=== PATIENT | female | born 1955 | race Caucasian/White ===

== ENCOUNTER → 2020-10-08 11:54 | Outpatient (BNVA) | payer MEDICARE, BC, SELFPAY | PROVIDERS: Family Provider Nurse Practitioner Family; Visit Provider Nurse Practitioner Family | DX: N39.0 Urinary tract infection, site not specified (principal) | CPT/HCPCS: 81000; 87077; 87086; 87184 ==

== ENCOUNTER → 2020-10-13 17:17 | Outpatient (BNVA) | payer MEDICARE, BC, SELFPAY | PROVIDERS: Family Provider Nurse Practitioner Family; Visit Provider Family Medicine | DX: N39.0 Urinary tract infection, site not specified (principal) | CPT/HCPCS: 81003 ==

== ENCOUNTER → 2023-05-25 11:47 | Outpatient (BNVA) | payer MEDICARE, BC, SELFPAY | PROVIDERS: Family Provider Nurse Practitioner Family; PCP Nurse Practitioner Family; Visit Provider Nurse Practitioner Family | DX: L57.0 Actinic keratosis (principal); L82.1 Other seborrheic keratosis; L81.4 Other melanin hyperpigmentation; D22.5 Melanocytic nevi of trunk; L82.0 Inflamed seborrheic keratosis; L85.3 Xerosis cutis; Z80.8 Family history of malignant neoplasm of other organs or systems; Z85.828 Personal history of other malignant neoplasm of skin | CPT/HCPCS: 17000; 17003; 17110; 99213 ==

== ENCOUNTER → 2024-05-25 08:25 | Outpatient (BNVA) | payer MEDICARE, BC, SELFPAY | PROVIDERS: Family Provider Nurse Practitioner Family; PCP Nurse Practitioner Family; Visit Provider Nurse Practitioner Family | DX: L57.8 Other skin changes due to chronic exposure to nonionizing radiation (principal); L82.0 Inflamed seborrheic keratosis; L82.1 Other seborrheic keratosis; L81.4 Other melanin hyperpigmentation; D22.5 Melanocytic nevi of trunk; L85.3 Xerosis cutis; L57.0 Actinic keratosis; Z85.828 Personal history of other malignant neoplasm of skin | CPT/HCPCS: 17000; 17110; 99213 ==

== ENCOUNTER 2025-01-14 21:22 | Emergency (ER) | payer BC, MEDICARE, SELFPAY ==
--- NOTE | 2025-01-14 21:27 | ECG_ITS ---
[facility] Date: 2025-01-14 Pat Name: Kacey Garcia Department: Room: Gender: Female Vp Of Product: : 1955 Requested By: Dominick Horn Order Number: [id number] Mahad MD: Harsha Donnelly M.D. Measurements Intervals [place] Rate: 85 P: 50 GA: 139 QRS: 12 QRSD: 90 T: 14 QT: 345 QTc: 412 Interpretive Statements SINUS RHYTHM WITH OCCASIONAL SUPRAVENTRICULAR PREMATURE COMPLEXES LOW QRS VOLTAGE IN PRECORDIAL LEADS [QRS DEFLECTION < 1.0 mV IN CHEST LEADS] MINIMAL VOLTAGE CRITERIA FOR LVH, CONSIDER NORMAL VARIANT [MEETS CRITERIA IN ONE OF: R(aVL), S(V1), R(V5), R(V5/V6)+S(V1)] NONSPECIFIC T-WAVE ABNORMALITY No previous ECG available for comparison Electronically Signed On 01-14-2025 21:29:22 CDT by Harsha Donnelly M.D. [id number] [id number]
[2025-01-14 21:28] VITALS: BP 196/83; PULSE 84; RESP 16; TEMP 37.5; O2SAT 98
--- NOTE | 2025-01-14 21:51 | XRR_ITS ---
PROCEDURE INFORMATION: Exam: XR Chest Exam date and time: 01/14/2025 9:54 PM Age: 69 years old Clinical indication: Pain; Chest pressure TECHNIQUE: Imaging protocol: Radiologic exam of the chest. Views: 1 view. COMPARISON: No relevant prior studies available. FINDINGS: Lungs: Unremarkable. No consolidation. Pleural spaces: Unremarkable. No pleural effusion. No pneumothorax. Heart/Mediastinum: Unremarkable. No cardiomegaly. Bones/joints: Unremarkable. XR/XR chest 1V portable [id number] IMPRESSION: No acute cardiopulmonary process.
--- NOTE | 2025-01-14 21:53 | W.ED.CHESTPA ---
HPI - Chest Pain General: Chief Complaint: Abdominal Pain Stated Complaint: chest pain Time Seen by Provider: 01/14/25 21:41 History of Present Illness: Patient is a well-appearing 69-year-old female from home seen for chest pressure. She states that she has a long history of heartburn and thought that initially her symptoms were consistent with heartburn as roughly 5 hours after eating sweet potatoes she started to have burning in her chest however this sensation transformed into pressure associated with nausea, lightheadedness, and general feeling of angst. She has never felt this constellation of symptoms before. She tried taking her famotidine and Maalox which did not help symptoms at all. En route to the hospital she became somewhat nauseated. She has a strong family history of cardiac disease but no personal history of the same. She has never been diagnosed with hypertension, does not smoke, does not drink alcohol, and is not aware of her current triglycerides. She has never felt this constellation of symptoms before. Risk Factors: Coronary artery disease risk factors: hypertension (Never formally diagnosed with hypertension and does not take medicine for it.) Related Data Home Medications ?Medication ?Instructions ?Recorded ?Confirmed cetirizine 10 mg tablet (Zyrtec) 10 mg PO DAILY PRN 01/08/21 05/26/21 Allergies Allergy/AdvReac Type Severity Reaction Status Date / Time Penicillins Allergy HIVES Verified 01/14/25 21:31 [facility] ED PFSH: Medical History Basal cell carcinoma Surgical History Status post hysterectomy Status post tonsillectomy Family History Other CAD (coronary artery disease) Cancer Diabetes Social History Smoking and tobacco/nicotine status: never used tobacco/nicotine Alcohol intake: never Substance/Drug Use: never Physical Exam Const: COMMON NORMALS: no acute distress, patient oriented x3 and alert HENMT: COMMON NORMALS: normocephalic and atraumatic HEAD & SCALP: normocephalic and atraumatic Eye: COMMON NORMALS: Equal, round and reactive pupils present, EOMs intact bilaterally and no scleral icterus PUPIL: Yes Equal, round and reactive pupils present Resp: COMMON NORMALS: normal respiratory effort and No retractions Cardio: COMMON NORMALS: regular rate, regular rhythm and No murmurs present (Cardio) RATE: regular rate RHYTHM: regular rhythm OTHER: Chest pain is not reproducible with palpation or deep inspiration. GI: COMMON NORMALS: Normal to inspection, nondistended, normoactive bowel sounds present, Soft to palpation and non-tender PALPATION: Yes Soft to palpation Neuro: COMMON NORMALS: patient oriented x3 SENSORIUM/ORIENTATION: Yes alert Skin: COMMON NORMALS: no rashes or lesions noted GENERAL SKIN EXAM: no rashes or lesions noted Course Vital Signs: Vital signs: Vital Signs Temperature 99.5 F 01/14/25 21:28 Pulse Rate 67 01/15/25 00:14 Respiratory Rate 14 01/15/25 00:14 Blood Pressure 133/75 01/15/25 00:14 Pulse Oximetry 97 01/15/25 00:14 Oxygen Delivery Me thod Room Air 01/14/25 21:28 MDM - Chest Pain Medical Decision Making In summary, patient is a generally well-appearing 69-year-old female seen for chest pressure, nausea, and lightheadedness. Symptoms improved with transdermal nitroglycerin. EKG does not show convincing ST segment changes or T wave inversions. Troponin is negative x 2. We discussed that her symptoms are concerning for ACS given their response to nitroglycerin. I offered her admission for expedited cardiac workup but she graciously declines and states that she will follow-up with her primary care doctor to undergo stress test and then near future. She knows that she is always welcome back in the emergency department if symptoms get worse and we specifically discussed returning should she feel chest pressure with exertion, lightheadedness, shortness of breath, or nausea. Lab Data 01/14/25 21:47 01/14/25 21:47 Radiology Impressions Chest X-Ray 01/14/25 21:51 IMPRESSION: No acute cardiopulmonary process. Laboratory Results WBC 9.08 10^3/uL (3.29-11.43) 01/14/25 21:47 RBC 4.29 10^6/uL (3.85-5.65) 01/14/25 21:47 Hgb 12.70 g/dL (11.27-16.99) 01/14/25 21:47 Hct 38.8 % (36-47) 01/14/25 21:47 MCV 90.4 fl (85-98) 01/14/25 21:47 MCH 29.6 pg (27-33) 01/14/25 21:47 MCHC 32.7 g/dL (30-55) 01/14/25 21:47 RDW 13.7 % (12.1-15.1) 01/14/25 21:47 Plt Count 159 10^3/cmm (157-399) 01/14/25 21:47 MPV 10.6 fL (7.4-10.4) H 01/14/25 21:47 Neut % (Auto) 77.5 % 01/14/25 21:47 Lymph % (Auto) 16.4 % 01/14/25 21:47 [place] % (Auto) 3.9 % 01/14/25 21:47 Eos % (Auto) 1.3 % 01/14/25 21:47 Baso % (Auto) 0.7 % 01/14/25 21:47 Neut # (Auto) 7.04 10^3/uL (1.8-7.7) 01/14/25 21:47 Lymph # (Auto) 1.5 10^3/uL (0.8-4.8) 01/14/25 21:47 [place] # (Auto) 0.4 10^3/uL (0.2-0.9) 01/14/25 21:47 Eos # (Auto) 0.1 10^3/uL (0.0-0.8) 01/14/25 21:47 Baso # (Auto) 0.1 10^3/uL (0.0-0.1) 01/14/25 21:47 Nucleated RBC % (auto) 0 % 01/14/25: Nucleated RBCs # 0.0 /100WBC 01/14/25 21:47 Sodium 140 mmol/L (136-145) 01/14/25 21:47 Potassium 4.1 mmol/L (3.5-5.1) 01/14/25 21:47 Chloride 105 mmol/L (98-107) 01/14/25 21:47 Carbon Dioxide 23 mmol/L (22-29) 01/14/25 21:47 Anion Gap 16.1 (5-19) 01/14/25 21:47 BUN 16 mg/dL (8-23) 01/14/25 21:47 Creatinine 1.1 mg/dL (0.5-0.9) H 01/14/25 21:47 GFR Calculation 49.1 mL/min (90-130) L 01/14/25 21:47 Glucose 122 mg/dL (65-115) H 01/14/25 21:47 Calculated Osmolality 292 mOsm/kg (285-295) 01/14/25 21:47 Calcium 9.2 mg/dL (8.5-10.5) 01/14/25 21:47 Total Bilirubin 0.3 mg/dL (0.15-1.2) 01/14/25 21:47 AST 15 U/L (0-32) 01/14/25 21:47 ALT 10 U/L (0-33) 01/14/25 21:47 Alkaline Phosphatase 80 U/L (35-105) 01/14/25 21:47 Troponin T Baseline 7 ng/L (0-10) 01/14/25 21:47 Troponin T 120 Minute 6.00 ng/L (0-10) 01/14/25 23:27 Delta Troponin T -1.00 ABS# (0-10) L 01/14/25 23:27 Total Protein 7.2 g/dL (6.6-8.7) 01/14/25 21:47 Albumin 4.5 g/dL (3.5-5.2) 01/14/25 21:47 Globulin 2.7 g/dL (1.3-4.6) 01/14/25 21:47 Lipase 4370 U/L (13-60) H 01/14/25 21:47 All radiology interpretation(s) finalized by discharge EKG Data EKG 1: Interpretation: EKG interpreted by me: Time?2126?sinus rhythm with infrequent PACs, no ST segment elevation or depression, no T wave inversions, intervals within normal limits. QTc = 388. EKG 2: Interpretation: Repeat EKG at 2316 after pain has decreased from 7 out of 10-2 of 10 with nitro paste?sinus rhythm, rate of 71, no ST segment elevation or depression, no T wave inversions, intervals within normal limits. QTc = 407 Discharge Plan Discharge Patient Disposition: Home Clinical Impression: Chest pressure Condition: Stable Prescriptions: No Action cetirizine [Zyrtec] 10 mg tablet 10 mg PO DAILY PRN Discharge Orders: Discharge ED (Routine); Ordered 01/15/25 Ordered By: León Ray Referrals: Devorah Rodriguez NP [Primary Care Provider] - Discharge Diet: Usual diet Discharge Activity: Increase activity as tolerated Patient Instructions: Chest Pain (ED) Activity Restrictions/Additional Instructions: As we discussed, please talk to your primary care doctor about getting a stress test performed in the next month or so. If you have worsening chest pressure with exertion please do not hesitate to return the emergency department for expedited workup as you may be suffering from a partially occluded coronary artery which could benefit from intervention acutely. Print Language: Canadian Coding Level of Care Code ED Program Advocate for Curtis Nicole
[2025-01-14 22:00] LABS: Basophils # 0.1 10^3/uL (0.0-0.1); Basophils % 0.7 %; Eosinophils # 0.1 10^3/uL (0.0-0.8); Eosinophils % 1.3 %; Hematocrit 38.8 % (36-47); Lymphocytes # 1.5 10^3/uL (0.8-4.8); Lymphocytes % 16.4 %; Mean Corpuscular HGB Conc 32.7 g/dL (30-55); Mean Corpuscular Hemoglobin 29.6 pg (27-33); Mean Corpuscular Volume 90.4 fl (85-98); Mean Platelet Volume 10.6 fL (7.4-10.4); Monocytes # 0.4 10^3/uL (0.2-0.9); Monocytes % 3.9 %; Neutrophils # 7.04 10^3/uL (1.8-7.7); Neutrophils % 77.5 %; Nucleated Red Blood Cells % 0 %; Platelet Count 159 10^3/cmm (157-399); Red Blood Count 4.29 10^6/uL (3.85-5.65); Red Cell Distribution Width 13.7 % (12.1-15.1); White Blood Count 9.08 10^3/uL (3.29-11.43)
[2025-01-14 22:12] LABS: Alanine Aminotransferase 10 U/L (0-33); Albumin Level 4.5 g/dL (3.5-5.2); Anion Gap 16.1 (5-19); Aspartate Amino Transferase 15 U/L (0-32); Blood Urea Nitrogen 16 mg/dL (8-23); Calcium 9.2 mg/dL (8.5-10.5); Carbon Dioxide 23 mmol/L (22-29); Chloride 105 mmol/L (98-107); Creatinine Clr Calc Pharmacy 52.0291; Globulin 2.7 g/dL (1.3-4.6); Glomerular Filtration Rate 49.1 mL/min (90-130); Glucose 122 mg/dL (65-115); Osmolality Calculated 292 mOsm/kg (285-295); Potassium 4.1 mmol/L (3.5-5.1); Sodium 140 mmol/L (136-145); Total Bilirubin 0.3 mg/dL (0.15-1.2); Total Protein 7.2 g/dL (6.6-8.7)
[2025-01-14] MEDS: aspirin 81 mg Chew Tablet 324 MG PO (22:15)
[2025-01-14 22:16] VITALS: RESP 29; O2SAT 97
[2025-01-14] MEDS: morphine 4 mg/mL SDV 1 mL 2 MG IVP (22:16)
[2025-01-14] MEDS: ondansetron 2 mg/ML SDV 2 mL 4 MG IVP ×2 (22:17→23:44)
[2025-01-14 22:18] VITALS: BP 189/95; PULSE 81
[2025-01-14] MEDS: nitroglycerin 1 gm/inch oint Pkt 1.5 INCH TOPICAL (22:18)
[2025-01-14 22:36] VITALS: BP 148/52; PULSE 73; RESP 14; O2SAT 92
[2025-01-14 22:36] LABS: Alkaline Phosphatase 80 U/L (35-105)
[2025-01-14 22:57] LABS: Troponin(5th) Baseline 7 ng/L (0-10)
[2025-01-14 23:07] VITALS: BP 121/78; PULSE 72; RESP 22; O2SAT 96
[2025-01-14 23:12] LABS: Lipase 4370 U/L (13-60)
--- NOTE | 2025-01-14 23:14 | ECG_ITS ---
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 Measurements Intervals [place] Rate: 71 P: 12 MA: 137 QRS: -17 QRSD: 84 T: -12 QT: 385 QTc: 419 Interpretive Statements SINUS RHYTHM POSSIBLE RIGHT VENTRICULAR CONDUCTION DELAY [RSR (QR) IN V1/V2] VOLTAGE CRITERIA FOR LVH [MEETS CRITERIA IN ONE OF: R(aVL), S(V1), R(V5), R(V5/V6)+S(V1)] POSSIBLE ANTERIOR MYOCARDIAL INFARCTION , PROBABLY OLD [30 ms Q WAVE IN V3/V4, OR R < 0.2 mV IN V4] Compared to ECG 01/14/2025 21:27:46 Myocardial infarct finding now present T-wave abnormality no longer present Electronically Signed On 01-16-2025 21:38:45 CDT by Harsha Donnelly M.D. [email or web address] [id number]
[2025-01-14] MEDS: sodium chloride 0.9% 1,000 ML 999 ML IV (23:43)
[2025-01-14 23:47] VITALS: BP 105/54; PULSE 67; RESP 16; O2SAT 92
[2025-01-15 00:14] VITALS: BP 133/75; PULSE 67; RESP 14; O2SAT 97
[2025-01-15 01:32] VITALS: BP 108/77; PULSE 75; O2SAT 97
== END 2025-01-15 01:20 | disposition home or self-care (01) ==
PROVIDERS: Emergency Provider Student in an Organized Health Care Education/Training Program; PCP Nurse Practitioner Family
DX: R07.89 Other chest pain (principal)
CPT/HCPCS: 36415; 71045; 80053; 83690; 84484; 85025; 93005; 96361; 96374; 96375; 96376; 99285; J2270; J2405; J7030; J9999

== ENCOUNTER 2025-01-31 11:11 | Outpatient (CLI) | payer BC, MEDICARE, SELFPAY | END 2025-01-31 11:12 | disposition home or self-care (01) | LOC: LAB 02-01 16:38 | PROVIDERS: PCP Nurse Practitioner Family; Visit Provider Nurse Practitioner Family | DX: R74.8 Abnormal levels of other serum enzymes (principal); R10.9 Unspecified abdominal pain; Z87.19 Personal history of other diseases of the digestive system | CPT/HCPCS: 80053; 82150; 83690 ==

== ENCOUNTER 2025-02-13 08:01 | Outpatient (CLI) | payer BC, MEDICARE, SELFPAY ==
--- NOTE | 2025-02-13 08:30 | US_ITS ---
WS: [id number] Complete ABDOMINAL ULTRASOUND HISTORY: R74.8 - Abnormal levels of other serum enzymes COMPARISON: None available. Liver: 14.7 cm in length. Normal size liver and echogenicity. No bile duct dilatation or mass. Portal Vein: Normal hepatopetal flow with monophasic waveform. Gallbladder: Normally distended gallbladder with no stones or wall thickening. CBD: 0.4 cm Pancreas: Normal size and echogenicity. Right kidney: 9.6 cm x 3.7 x 4.2 cm. Cortex:1.2 cm. Normal size and echogenicity. No hydronephrosis or mass. Left kidney: 9.9 cm x 4.7 cm x 5.3 cm. Cortex: 1.3 cm. Normal size and echogenicity. No hydronephrosis or mass. Spleen: 9.3 cm. Normal size and echogenicity. Aorta and IVC: Unremarkable abdominal aorta and IVC. US/US abdomen complete* [id number] Impression: Normal complete abdomen ultrasound.
== END 2025-02-13 08:02 | disposition home or self-care (01) ==
PROVIDERS: PCP Nurse Practitioner Family; Visit Provider Nurse Practitioner Family
DX: R74.8 Abnormal levels of other serum enzymes (principal); R10.9 Unspecified abdominal pain; Z87.19 Personal history of other diseases of the digestive system
CPT/HCPCS: 76700; 80053; 82150; 83690

== ENCOUNTER 2025-02-18 06:37 | Outpatient (CLI) | payer MEDICARE, BC, SELFPAY ==
[2025-02-18 07:01] VITALS: BMI 27.3
--- NOTE | 2025-02-18 07:01 | ECG_ITS ---
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 Baseline heart rate was 72 beats per minute. Baseline blood pressure was 177/101 millimeters of mercury. Target heart rate was 150 beats per minute. Maximum heart rate achieved was 151, which was 100% of the target heart rate. Maximum blood pressure was 210/101 millimeters of mercury. Total exercise time was 3 minutes 50 seconds. Maximum METs achieved was 7.0, maximum VO2 was 24.5. The reason for ending the test was maximum effort achieved. The patient complained of shortness of breath during the stress test, which then resolved at the end of the test. ELECTROCARDIOGRAM: BASELINE: Showed sinus rhythm, normal axis, no significant ST-T changes at the baseline noted. EXERCISE: At the peak exercise level, no significant ST-T changes suggestive of ischemia noted. RECOVERY: During the recovery period, heart rate dropped appropriately. No significant ST-T changes in the recovery suggestive of ischemia noted. CONCLUSION: 1. Exercise capacity poor. 2. Heart rate response was tachycardic. 3. Blood pressure response was hypertensive. 4. Symptoms not suggestive of ischemia. 5. Electrocardiogram portion of the stress test was not suggestive of ischemia. Please note that due to underachievement of METS and poor exercise capacity specificity and sensitivity of EKG portion of the stress test will be of low yield Electronically Signed On 03-05-2025 22:58:24 CDT by OCTAVIA BLACKMON [email or web address] [id number]
--- NOTE | 2025-02-18 07:02 | NMCV_ITS ---
NM jose carlos perf SPECT r/s* [id number] Kacey Garcia Age: 69 Gender: F : 1955 Exam Date: 02/18/2025 07:45 Ordering Phys: FRED Durán APRN Technologist: ANA Norton Exam Location: [facility] Indications: cp STRESS TEST [facility] IMAGE PROTOCOL Rest/Stress 1 Exercise Day Radiopharmaceutical Dose (mCi) Administration Site Administered by Rest: Tc-99m 10.5 IV ANA Norton Sestamibi Stress:Tc-99m 32.7 IV ANA Elizabeth Sestamibi Rest: 18-Feb-2025 60 Discovery 630 Stress: 18-Feb-2025 15 Discovery 630 Radiopharmaceutical was injected at 88 % maximum heart rate. Images obtained in supine and prone position. SPECT RESULTS Technical Quality: Good Raw Data Analysis: Normal Image Corrections: No attenuation or motion correction applied Summed Stress Score: 3 Summed Rest Score: 2 Summed Difference Score: 2 PERFUSION FINDINGS There is a small sized, reversible perfusion defect seen in apical lateral wall that improves on prone imaging. This is consistent with possible small sized area of ischemia in apical lateral wall vs attenuation artifact. FUNCTIONAL RESULTS (calculated via Gated SPECT) Stress Image LV EF (%): 76 Stress EDV (mL):71 TID: 0.83 Stress ESV (mL):17 FUNCTIONAL FINDINGS: There is normal left ventricular systolic function. IMPRESSIONS 1. Small area of ischemia seen in the apical lateral wall. Attenuation artifact can not be ruled out. 2. LV systolic function is normal Jimmie Doran MD (Electronically Signed) Final Date: 22 Feb 2025 08:21 S
[2025-02-18 08:34] VITALS: BP 176/77; PULSE 85
== END 2025-02-18 06:38 | disposition home or self-care (01) ==
LOC: CDL 06:38
PROVIDERS: PCP Nurse Practitioner Family; Visit Provider Nurse Practitioner Family
DX: R07.9 Chest pain, unspecified (principal); R93.1 Abnormal findings on diagnostic imaging of heart and coronary circulation; R00.0 Tachycardia, unspecified
CPT/HCPCS: 36415; 78452; 93017; A9500

== ENCOUNTER 2025-03-06 08:31 | Outpatient (CLI) | payer MEDICARE, BC, SELFPAY ==
--- NOTE | 2025-03-06 08:40 | MM_ITS ---
WS: [id number] BILATERAL SCREENING DIGITAL BREAST MAMMOGRAPHY WITH TAHIR DISPLACEMENT VIEWS. CAD PERFORMED. HISTORY: Z12.31 - Encounter for screening mammogram for malignant ... COMPARISON: 12/07/2016, 06/02/2007 Bilateral craniocaudal and mediolateral oblique views are performed with tomosynthesis and SM. Tahir displacement views in CC and MLO projection also performed. Breasts composition: There are scattered areas of fibroglandular density. Prepectoral implants are intact. Partial collapse of the implants. There are multiple folds within each implant which are stable. Partial capsular contraction of the LEFT implant. No suspicious grouping of calcifications and no mass. MM/MM scr BI tomosynthesis [id number] IMPRESSION: BI-RADS: 2 - Benign. FOLLOW-UP: 1 Year Follow-up
== END 2025-03-06 08:32 | disposition home or self-care (01) ==
LOC: RAD 08:32
PROVIDERS: PCP Nurse Practitioner Family; Visit Provider Nurse Practitioner Family
DX: Z12.31 Encounter for screening mammogram for malignant neoplasm of breast (principal); R92.323 Mammographic fibroglandular density, bilateral breasts; Z98.82 Breast implant status; T85.41XA Breakdown (mechanical) of breast prosthesis and implant, initial encounter; X58.XXXA Exposure to other specified factors, initial encounter
CPT/HCPCS: 77063; 77067

== ENCOUNTER → 2025-06-12 10:00 | Outpatient (BNVA) | payer MEDICARE, BC, SELFPAY | PROVIDERS: PCP Nurse Practitioner Family; Visit Provider Nurse Practitioner Family | DX: L57.8 Other skin changes due to chronic exposure to nonionizing radiation (principal); L82.1 Other seborrheic keratosis; L81.4 Other melanin hyperpigmentation; L85.3 Xerosis cutis; Z08 Encounter for follow-up examination after completed treatment for malignant neoplasm; Z85.828 Personal history of other malignant neoplasm of skin; L82.0 Inflamed seborrheic keratosis; L29.89 Other pruritus; L53.8 Other specified erythematous conditions; R20.8 Other disturbances of skin sensation; Z78.9 Other specified health status; D48.5 Neoplasm of uncertain behavior of skin | CPT/HCPCS: 11102; 17000; 17110; 69100; 99213 ==

== ENCOUNTER → 2025-07-16 07:54 | Outpatient (BNVA) | payer MEDICARE, BC, SELFPAY | PROVIDERS: PCP Nurse Practitioner Family; Visit Provider Dermatology | DX: C44.41 Basal cell carcinoma of skin of scalp and neck (principal); C44.01 Basal cell carcinoma of skin of lip | CPT/HCPCS: 11642; 12031; 12052; 17311 ==

== ENCOUNTER → 2025-09-05 07:12 | Outpatient (BNVA) | payer MEDICARE, BC, SELFPAY | PROVIDERS: PCP Nurse Practitioner Family; Visit Provider Podiatrist Foot & Ankle Surgery | DX: L60.0 Ingrowing nail (principal) | CPT/HCPCS: 11750; 99203; J9999 ==